=== PATIENT | female | born 1995 | race Hispanic/Latino ===

== ENCOUNTER → 2025-07-07 | Outpatient (REF) | payer OTHER ==
[~2025-07-07] MED LIST: DIATRIZOATE MEGL/DIATRIZOA SOD 30 ML BTL PO ONE; IOPAMIDOL 370 MG/ML 100 ML INFUS..BTL INJ ONE; NO HOME MEDS; ONDANSETRON ODT4 MG PO; SODIUM CHLORIDE 0.9% 250ML 250 ML ONE
== END ==
LOC: DX 07:44
PROVIDERS: ATTEND Surgery
DX: K57.80 Diverticulitis of intestine, part unspecified, with perforation and abscess without bleeding (principal)
CPT/HCPCS: 74280; J7050; Q9963; Q9967